=== PATIENT | male | born 1960 | race Hispanic/Latino ===

== ENCOUNTER → 2018-11-21 | Day surgery (SDC) | payer BC ==
[2018-11-20 12:12] LABS: BASOPHILS # (AUTO) 0.1 (0.0-0.1); BASOPHILS % 1.4 % (0.0-1.0); EOSINOPHILS # (AUTO) 0.1 (0.0-0.4); EOSINOPHILS % 0.6 % (0.0-6.0); HEMOGLOBIN 16.1 g/dL (14.0-18.0); LYMPHOCYTES % 24.4 % (18.0-39.1); MEAN CORPUSCULAR HEMOGLOBIN 30.1 pg (28-32); MEAN CORPUSCULAR HGB CONC 34.3 g/dL (31-35); MONOCYTES # (AUTO) 0.4 (0.2-0.8); MONOCYTES % 4.8 % (4.4-11.3); NEUTROPHILS # (AUTO) 5.5 (2.1-6.9); NEUTROPHILS % 68.1 % (38.7-80.0); PLATELET COUNT 263 x10e3/uL (140-360); RED BLOOD COUNT 5.34 x10e6/uL (4.3-5.7); RED CELL DISTRIBUTION WIDTH 12.9 % (11.7-14.4)
[2018-11-20 12:22] LABS: INR 0.86; PROTHROMBIN TIME 12.2 seconds (11.9-14.5)
[2018-11-20 12:26] LABS: ANION GAP 16.7 mmol/L (8-16); BLOOD UREA NITROGEN 14 mg/dL (7-26); BUN/CREATININE RATIO 17 (6-25); CARBON DIOXIDE 27 mmol/L (22-29); CHLORIDE 94 mmol/L (98-107); CREATININE, SERUM 0.81 mg/dL (0.72-1.25); EST GLOMERULAR FILTRATION RATE > 60 ML/MIN (60-); GLUCOSE 147 mg/dL (74-118); POTASSIUM 3.7 mmol/L (3.5-5.1); SODIUM 134 mmol/L (136-145)
[~2018-11-21] MED LIST: ALLOPURINOL300 MG PO; BUPIVACAINE HCL 0.5% INJ 30 ML VIAL INJ ONE; CEFTRIAXONE SOD 1 GM/NS 50 ML 50 ML IV ONE; HYDROCHLOROTHIA25 MG; INSULIN REGULAR, HUMAN 100 UNIT/1 ML 3ML VIAL ONE; JARDIANCE; LIDOCAINE HCL 1% 30ML-PF VIAL ONE; LOSARTAN POTASS25 MG; METFORMIN HCL500 MG PO; TRESIBA SQ
--- OUTSIDE RECORDS SUMMARY | 2018-11-21 07:22 | XMS REPORT | Clinical Summary ---
Author Author [facility] Organization [facility] Address Unknown Phone Unavailable Care Team Providers Care Machine Bobbin Winder Name Role Phone Jonathan Lin MD PCP Allergies Not on File Medications Not on file Active Problems Not on file Encounters Care Team Description Date Type Specialty Jerod Lambert MD Calculus of kidney (Primary Dx); Calculus of ureter 11/16/2018 Transcribe Access Orders Jerod Lambert MD Calculus of kidney 05/21/2018 Hospital Radiology Encounter after 11/20/2017 Social History Date Tobacco Use Types Packs/Day Years Used Never Assessed Sex Assigned at Date Recorded Not on file Industry Job Start Date Occupation Not on file Not on file Not on file Travel End Travel History Travel Start No recent travel history available. Last Filed Vital Signs Not on file Plan of Treatment Health Maintenance Due Date Last Done Comments COLONOSCOPY SCREENING 2009 SHINGLES VACCINES (#1) 2009 INFLUENZA VACCINE 01/10/2019 Procedures Comments Procedure Name Priority Date/Time Associated Diagnosis XR ABDOMEN 1 VW Routine 11/16/2018 Calculus of kidney 12:02 PM CDT Calculus of ureter XR ABDOMEN 1 VW Routine 05/21/2018 Calculus of kidney 4:26 PM [employer] after 11/20/2017 Results * XR Abdomen 1 Vw (11/16/2018 12:02 PM CDT) Only the most recent of 2 results within the time period is included. Specimen Narrative Performed At EXAMINATION:XR ABDOMEN 1 VW [facility] CLINICAL HISTORY:N20.0 Calculus of kidney, N20.1 Calculus of ureter, n20.1 n20.0 COMPARISON:05/21/2018 IMPRESSION: No urinary tract lithiasis identified. Bowel loop show no evidence of obstruction or ileus. Mild degenerative changes in the spine and hips. [id number] Procedure Note Hm Interface, Radiology Results Incoming - 11/16/2018 12:15 PM CDT EXAMINATION: XR ABDOMEN 1 VW CLINICAL HISTORY: N20.0 Calculus of kidney, N20.1 Calculus of ureter, n20.1 n20.0 COMPARISON: 05/21/2018 IMPRESSION: No urinary tract lithiasis identified. Bowel loop show no evidence of obstruction or ileus. Mild degenerative changes in the spine and hips. [id number] Performing Organization Address [facility]/State[facility] Phone Number [facility] [address] [place] [address] after 11/20/2017 Insurance Type Payer Benefit Subscriber ID Effective Phone Address Plan / Dates Group PPO [facility] xxxxxxxxxxxx [id number] BLUE CROSS resent Advance Directives Patient has advance care planning documents on file. For more information, zane prince contact: Fuad Blackwood [address] [place] [address]
[2018-11-21 10:01] VITALS: BP 137/78
--- NOTE | 2018-11-22 06:19 | Operative Report ---
DATE OF PROCEDURE: 11/21/2018 SURGEON: Jerod Lambert MD PREOPERATIVE DIAGNOSIS: Mass in the left hemiscrotum, 10 x 10 mm. POSTOPERATIVE DIAGNOSIS: Mass in the left hemiscrotum, 10 x 10 mm. OPERATION: Excision of mass, scrotoplasty. ANESTHETIC: Local anesthesia, 1% plain xylocaine. INDICATIONS OF PROCEDURE: Mr. Richardson is a 58-year-old male, who presented with an increasing mass on the left hemiscrotum for the last 3 to 4 months. He tells me that lately it has been getting harder, oozing, and tender at times. Physical exam showed the mass to be about 10 x 10 mm and firm. DESCRIPTION OF THE PROCEDURE: This patient was placed on the table in the supine position and was prepped and draped in a sterile manner after satisfactory anesthesia. A 1% plain xylocaine was infiltrated into the scrotal skin under the mass with about safety margin of about 1 cm all around. An elliptical incision was made around the mass leaving about 3 mm safety margin all around. Hemostasis was obtained all through and was very adequate. The scrotal skin was then undermined to be able to bring and get the skin back again together. Hemostasis again was very adequate using electrocautery. Attention was now directed to the wound closure and the wound was approximated after having enough mobility using 4-0 Vicryl interruptedly. Dermabond was placed. The patient tolerated the procedure well and was taken to the recovery room in satisfactory condition. Estimated blood loss was about 1 to 2 mL. Plans for this patient is to be placed on Keflex 500 mg one three times a day for 1 week. Ultracet tablet one every 4 to 6 hours p.r.n. and was given 30. He is to return to the office in about 3 weeks. Jerod Lambert MD MA/JAYSRHEE /[id number]
== END | disposition home or self-care (01) ==
LOC: OR 07:19
PROVIDERS: ATTEND Specialist
DX: D29.22 Benign neoplasm of left testis (principal); Z01.810 Encounter for preprocedural cardiovascular examination; Z01.812 Encounter for preprocedural laboratory examination; Z79.4 Long term (current) use of insulin
CPT/HCPCS: 11422; 12044; 36415 ×2; 80048; 82948; 85025; 85610; 88305; 88313; 93005; J0696; J2001